=== PATIENT | female | born 1950 | race Two or more races ===

== ENCOUNTER 2019-05-03 00:20 | Observation (INO) | payer MEDICARE, MEDICAID ==
[~2019-05-03] VITALS: Ht 165.1 cm; Wt 85.0 kg
[2019-05-03] MEDS ORDERED: CHOLESTEROL MED (00:26)
--- NOTE | 2019-05-03 00:39 | NUR ---
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
--- NOTE | 2019-05-03 00:39 | NUR ---
68Y F COMES IN W/ C/O CP, DIZZY SINCE 1800 YESTERDAY. PT CONNECTED TO ALL MONITORS VSS CALL LIGHT IN REACH, VSS
--- NOTE | 2019-05-03 00:58 | NUR ---
LAB AT BEDSIDE, XRAY AT BEDSIDE
[2019-05-03 01:04] LABS: BASOPHILS # (AUTO) 0.03 x10^3/uL (0-0.1); BASOPHILS % (AUTO) 0 % (0-1); EOSINOPHILS # (AUTO) 0.15 x10^3/uL (0-0.4); EOSINOPHILS % (AUTO) 2 % (1-7); LYMPHOCYTES # (AUTO) 1.69 x10^3/uL (1-3.4); LYMPHOCYTES % (AUTO) 23 % (22-44); MD NO; MEAN CORPUSCULAR HEMOGLOBIN 28.6 pg (27.0-34.8); MEAN CORPUSCULAR VOLUME 86.9 fL (80-100); MEAN PLATELET VOLUME 7.7 fL (7.4-10.4); MONOCYTES # (AUTO) 0.64 x10^3/uL (0.2-0.8); MONOCYTES % (AUTO) 9 % (2-9); NEUTROPHILS # (AUTO) 4.82 x10^3/uL (1.8-6.8); NEUTROPHILS % (AUTO) 66 % (42-75); PLATELET COUNT 238 x10^3/uL (130-400); RED BLOOD COUNT 4.99 x10^6/uL (3.82-5.3)
[2019-05-03 01:13] LABS: ALANINE AMINOTRANSFERASE 33 U/L (12-78); ALBUMIN 3.4 g/dL (3.4-5.0); ANION GAP 6 mmol/L (5-15); CHLORIDE 106 mmol/L (98-107); CREATININE 0.76 mg/dL (0.55-1.02)
[2019-05-03 01:18] LABS: ALKALINE PHOSPHATASE 136 U/L (45-117); BILIRUBIN,TOTAL 0.4 mg/dL (0.2-1.0); TOTAL PROTEIN 7.3 g/dL (6.4-8.2); TROPONIN I < 0.015 ng/mL (0.000-0.045)
--- NOTE | 2019-05-03 01:51 | NUR ---
REPORT GIVEN TO FLOOR RN ALL QUESTIONS ADDRESSED
[2019-05-03] MEDS ORDERED: ASPIRIN 81 MG TABLET CHEW PO ONE (02:00)
[2019-05-03 02:12] VITALS: BP 120/58
[2019-05-03] MEDS ORDERED: NITROGLYCERIN 0.4 MG BOTTLE (25 TABS) SL PRN (04:00)
[2019-05-03] MEDS ORDERED: hydrALAzine 20 MG/ML, 1ML IVPush PRN (04:00)
[2019-05-03] MEDS ORDERED: ACETAMINOPHEN 325 MG TABLET PO PRN (04:00)
[2019-05-03] MEDS ORDERED: morphine SULFATE 10 MG/ML, 1ML IVPush PRN (04:00)
[2019-05-03] MEDS ORDERED: ONDANSETRON 2MG/ML, 2ML IVPush PRN (04:00)
[2019-05-03 05:47] LABS: CHOL/HDL RATIO 3.2; CHOLESTEROL, TOTAL 186 mg/dL (140-239); HDL CHOL % 31 % (28-40); HDL CHOLESTEROL (DIRECT) 58 mg/dL (40-60); LDL CHOLESTEROL,CALCULATED 111 mg/dL (54-169); LDL/HDL RATIO 1.9 (0.5-3.0); TRIGLYCERIDES 84 mg/dL (50-200); TROPONIN I < 0.015 ng/mL (0.000-0.045); VLDL CHOLESTEROL 17 mg/dL (0-25)
[2019-05-03] MEDS ORDERED: ASPIRIN 325 MG TABLET EC PO SCH (06:00)
[2019-05-03 06:44] VITALS: BP 116/52
[2019-05-03] MEDS ORDERED: REGADENOSON 0.4 MG/5 ML SYRINGE ONE (09:26)
[2019-05-03 11:14] LABS: TROPONIN I < 0.015 ng/mL (0.000-0.045)
[2019-05-03 13:59] VITALS: BP 111/68
[2019-05-03] MEDS ORDERED: ATORVASTATIN 40 MG TABLET PO SCH (21:00)
== END 2019-05-03 17:08 | disposition home or self-care (01) ==
LOC: ED 00:37 → INTOOBSV 01:32 → EDIP 01:32 → 5SO 01:59
PROVIDERS: ADMIT Family Medicine; ATTEND Family Medicine
DX: R07.9 Chest pain, unspecified (principal); E78.5 Hyperlipidemia, unspecified; E66.9 Obesity, unspecified; Z68.31 Body mass index [BMI] 31.0-31.9, adult
CPT/HCPCS: 36415; 71045; 78452; 80053; 80061; 83690; 83880; 84484; 85025; 93005; 93017; 99284; A9502; C9898; G0378; J2785